=== PATIENT | male | born 1960 | race Caucasian/White ===

== ENCOUNTER 2017-08-20 21:06 | Emergency (ER) | payer OTHER ==
[2017-08-20 21:13] VITALS: BP 132/80
[2017-08-20] MEDS ORDERED: HYDROCODONE/ACETAMINOPHEN 5-325 MG (6 TAB/ER DISP) PO PRN (21:36)
[2017-08-20] MEDS ORDERED: DIAZEPAM 5 MG TABLET PO ONE (21:36)
[2017-08-20] MEDS ORDERED: KETOROLAC TROMETHAMINE 60 MG/2 ML SDV IM ONE (21:36)
--- NOTE | 2017-08-20 21:41 | ER Document Report ---
ED Neck/Back Problem - General Chief Complaint: Back Pain Stated Complaint: LOWER BACK PAIN Time Seen by Provider: 08/20/17 21:32 Mode of Arrival: Ambulatory Information source: Patient Notes: Patient is a 57-year-old male who presents to the ER today for low back pain. Patient states he has chronic low back pain, however sometimes has his back "locked up" on him. Patient states whenever this happens "less than 3 times a year he usually gets pain medication as well as Valium which is the only thing he says works on his muscle spasms and a Toradol shot. Patient states that he usually gets a prescription for pain medication and Valium from his primary care provider but he is out. He admits that some pain is now shooting down the backs of both legs. He denies any numbness or tingling. TRAVEL OUTSIDE OF THE [place] IN LAST 30 DAYS: No - Related Data Allergies/Adverse Reactions: No Known Allergies Allergy (Unverified 10/03/10 14:07) Past Medical History - General Information source: Patient - Social History Smoking Status: Unknown if Ever Smoked Family History: Reviewed & Not Pertinent Neurological Medical History: Denies: Hx Seizures Past Surgical History: Reports: Hx Cholecystectomy - Immunizations Hx Diphtheria, Pertussis, Tetanus Vaccination: Yes Review of Systems - Review of Systems Constitutional: No symptoms reported EENT: No symptoms reported Cardiovascular: No symptoms reported Respiratory: No symptoms reported Gastrointestinal: No symptoms reported Genitourinary: No symptoms reported Male Genitourinary: No symptoms reported Musculoskeletal: See HPI Skin: No symptoms reported Hematologic/Lymphatic: No symptoms reported Neurological/Psychological: No symptoms reported Physical Exam - Vital signs Vitals: Temp Pulse Resp BP Pulse Ox 98.0 F 72 14 132/80 H 98 08/20/17 21:11 08/20/17 21:11 08/20/17 21:11 08/20/17 21:11 08/20/17 21:11 - Notes Notes: PHYSICAL EXAMINATION: GENERAL: Uncomfortable appearing, but in no acute distress. HEAD: Atraumatic, normocephalic. EYES: Pupils equal round and reactive to light, extraocular movements intact, sclera anicteric, conjunctiva are normal. ENT: ear canals without erythema or foreign body, TMs pearly hernández with good bony landmarks, nares patent, oropharynx clear without exudates. Moist mucous membranes. NECK: Normal range of motion, supple without lymphadenopathy LUNGS: CTAB and equal. No wheezes rales or rhonchi. HEART: Regular rate and rhythm without murmurs ABDOMEN: Soft, no tenderness. No guarding, no rebound BACK: Bilateral SI joint tenderness, lumbar vertebral tenderness, Limited range of motion with bending, rotation of the hips due to pain, GI/: no CVA tenderness EXTREMITIES: no pitting edema. No cyanosis. NEUROLOGICAL: Cranial nerves grossly intact. Normal sensory/motor exams. PSYCH: Normal mood, normal affect. SKIN: Warm, Dry, normal turgor, no rashes or lesions noted Course - Re-evaluation Re-evalutation: 08/20/17 21:47 Patient is hardly ever here for back pain. Because of this I will provide him with some pain medication and one Valium, shot of Toradol here. - Vital Signs Vital signs: Temp Pulse Resp BP Pulse Ox 98.0 F 72 14 132/80 H 98 08/20/17 21:11 08/20/17 21:11 08/20/17 21:11 08/20/17 21:11 08/20/17 21:11 Discharge - Discharge Clinical Impression: Acute exacerbation of chronic low back pain Condition: Stable Disposition: HOME, SELF-CARE Instructions: Muscle Strain ([facility]), Low Back Pain ([facility]), Oral Narcotic Medication ([facility]), Warm Packs ([facility]) Additional Instructions: Return immediately for any new or worsening symptoms. Follow up with primary care provider, call tomorrow to make followup appointment. Prescriptions: Diazepam [Valium 5 mg Tablet] 5 mg PO QIDP PRN #5 tablet PRN Reason: Forms: Return to Work
== END 2017-08-20 21:55 | disposition home or self-care (01) ==
LOC: ER 21:06
DX: M54.5 Low back pain (principal); G89.29 Other chronic pain; M79.604 Pain in right leg; M79.605 Pain in left leg; Z79.899 Other long term (current) drug therapy
CPT/HCPCS: 99283; 96372; J1885